=== PATIENT | female | born 1950 | race Caucasian/White ===

== ENCOUNTER 2018-07-18 10:35 | Day surgery (SDC) | payer MEDICARE, OTHER, SELFPAY ==
[2018-07-18 11:35] VITALS: BP 212/108; PULSE 98; RESP 24; TEMP 36.6; O2SAT 98; BMI 33.0
[2018-07-18 11:45] VITALS: BP 212/108; PULSE 98; RESP 24; TEMP 36.6; O2SAT 98
[2018-07-18] MEDS: PROPARACAINE 0.5% OPHTH SOL 2 DROPS EYE-OP (11:45)
[2018-07-18] MEDS: CATARACT EYE COMPOUND (10 DROPS/SYRINGE) 3 DROPS EYE-OP (11:50)
--- NOTE | 2018-07-18 12:03 | PM.PREOP ---
Pre-operative Note Interval Note History & Physical reviewed/Exam performed by Physician: Yes Changes to H&P: No
[2018-07-18] MEDS: MIDAZOLAM 2 MG/2 ML VIAL IV (12:04)
[2018-07-18] MEDS: PHENYLEPHRINE/LIDOCAINE VIAL (OR) 0.2 ML EYE-OP (12:43)
[2018-07-18] MEDS: MOXIFLOXACIN OPHTH DROPS 3 ML BOTTLE 2 DROPS INJ (12:43)
[2018-07-18] MEDS: CHONDROIDTIN/SOD HYALURONATE 1.05 ML SYRINGE INTRAOCULA (12:44)
[2018-07-18] MEDS: TETRACAINE 0.5% OPHTH DROPS 4 ML 2 DROPS EYE-RIGHT (12:45)
[2018-07-18] MEDS: BALANCED SALT IRRIG SOLN NO.2 500 ML, EPINEPHrine 1 MG IRR (12:45)
[2018-07-18] MEDS: TRIAMCINOLONE (PF) 40 MG/ML VIAL IM (13:06)
[2018-07-18] MEDS: ERYTHROMYCIN OPHTH 1 GM OINT 1 APPLIC EYE-RIGHT (13:23)
--- NOTE | 2018-07-18 13:24 | PM.OP.1 ---
Procedure & Clinicians Procedure: Cataract extraction with introcular lens implant right Same procedure as scheduled: Yes Indications: nuclear sclerosis, right Surgeon: George Garrido Click Yes if Unassisted: Yes Anesthesia Type: MAC +/- Operative Notes Procedure in detail: The patient was brought to the operating suite. The correct patient, surgical site and lens were confirmed. 0.5 % tetracaine drops were placed in the right eye. The cornea was marked with a reference marker. The patient was prepped and draped in the typical sterile manner. A lid speculum was placed in the eye. 2% lidocaine was placed on the eye. A paracentesis port was created with a 1.0mm side-port blade. 0.1 mL of 1% preservative free lidocaine with phenylephrine was injected into the anterior chamber. Viscoelastic was injected into the anterior chamber. A 2.6mm keratome was used to create a clear corneal temporal incision. Cystotome and Utrata forceps were used to create a continuous curvilinear capsulorrhexis. Balanced salt solution was used to hydrodissect the nucleus. The lens was fractured into four quadrants using a divide and conquer technique with a Darren nucleus chopper. Phacoemulsification was used to remove the quadrants. While removing the last nuclear quadrant the posterior bag moved anterior and touched the phacoemulsification tip. A posterior tear was appreciated. Provisc was inserted into the anterior chamber and the vitreous pushed posterior. Utrada forceps were used to create a continuous posterior capsulorrhexis. Provisc was used to refill the anterior chamber. An attempt to remove the residual cortex with I/A was made. At this point vitreous was appreciated in the anterior chamber. The anterior chamber was re-inflated with Provisc. Triesence was injected into the anterior chamber and anterior vitreous was removed with an anterior vitrector. At this point the decision was made to abort the surgery. The wound was sutured with 10-0 nylon and the knot buried. The wound and sideport incision were found to be water tight. No vitreous was appreciated at the incisions. 0.1mL Vigamox was injected into the anterior chamber. The wounds were checked again and found to be sealed and the eye was found to be at normal physiologic pressure. The wounds were again checked for vitreous and no vitreous was appreciated. Erythromycin ointment was applied to the eye and a pressure patch was placed. Will plan for retina referral. Complications: other Condition: stable Disposition: same day surgery
[2018-07-18 13:35] VITALS: BP 189/99; PULSE 79; RESP 16; TEMP 36.1; O2SAT 97
--- NOTE | 2018-07-18 15:51 | SUR.PHASEII ---
in to talk with patient [phone], 1400 pt dressed , steady on feet, ready to go home
== END 2018-07-18 14:00 ==
LOC: OR 10:36
PROVIDERS: PCP Student in an Organized Health Care Education/Training Program; Visit Provider Ophthalmology
DX: H25.11 Age-related nuclear cataract, right eye (principal)
CPT/HCPCS: J0171; J2250; J3010; J3300

== ENCOUNTER 2018-08-01 07:42 | Day surgery (SDC) | payer MEDICARE, OTHER, SELFPAY ==
[2018-08-01] MEDS: PROPARACAINE 0.5% OPHTH SOL 2 DROPS EYE-OP (08:05)
[2018-08-01 08:06] VITALS: BP 190/94; PULSE 61; RESP 15; TEMP 36.4; O2SAT 100; BMI 34.1
[2018-08-01] MEDS: CATARACT EYE COMPOUND (10 DROPS/SYRINGE) 3 DROPS EYE-OP (08:07)
--- NOTE | 2018-08-01 09:58 | PM.PREOP ---
Pre-operative Note Interval Note History & Physical reviewed/Exam performed by Physician: Yes Changes to H&P: No
--- NOTE | 2018-08-01 10:21 | SUR.OPER ---
Supine on eye stretcher, head on extension cradle secured with tape. Arms tucked at sides with blanket. Pillow under knees.
[2018-08-01] MEDS: PHENYLEPHRINE/LIDOCAINE VIAL (OR) 0.2 ML EYE-OP (10:23)
[2018-08-01] MEDS: MOXIFLOXACIN OPHTH DROPS 3 ML BOTTLE 2 DROPS INJ (10:24)
[2018-08-01] MEDS: CHONDROIDTIN/SOD HYALURONATE 1.05 ML SYRINGE INTRAOCULA (10:24)
[2018-08-01] MEDS: LIDOCAINE 2% INJ SDV 5 ML INJ (10:25)
[2018-08-01] MEDS: BALANCED SALT IRRIG SOLN NO.2 500 ML, EPINEPHrine 1 MG IRR (10:25)
[2018-08-01] MEDS: BALANCED SALT IRRIG SOLN NO.2 15 ML IRR (10:26)
--- NOTE | 2018-08-01 10:47 | PM.OP.1 ---
Procedure & Clinicians Procedure: Cataract extraction , intraocular lens implant, left Same procedure as scheduled: Yes Indications: visually significant nuclear cataract, left Click Yes if Unassisted: Yes Anesthesia Type: MAC +/- Operative Notes Procedure in detail: The patient was brought to the operating suite. The correct patient, surgical site and lens were confirmed. 0.5 % tetracaine drops were placed in the left eye. The cornea was marked with a corneal reference marker. The patient was prepped and draped in the typical sterile manner. A lid speculum was placed in the eye. 2% lidocaine was placed on the eye. A paracentesis port was created with a side-port blade. 0.1 mL of 1% preservative free lidocaine with phenylephrine was injected into the anterior chamber. Viscoelastic was injected into the anterior chamber. A 2.6mm keratome was used to create a clear corneal temporal incision. Cystotome and Utrata forceps were used to create a continuous curvilinear capsulorrhexis. Balanced salt solution was used to hydrodissect the nucleus. Phacoemulsification was used to remove the lens. The capsular bag was inflated with viscoelastic. A Baker [id number] +15.5D lens was inserted into the capsule and aligned to 108 degrees. Viscoelastic was removed and the wound hydrated. The wound was found to be leak free and the eye was assessed to be at normal physiologic pressure. 0.1mL Vigamox was injected into the anterior chamber. The lens was found to be in good location and well aligned. The lid speculum was removed and the patient left the operating room in excellent condition. Complications: none Condition: stable Disposition: same day surgery
--- NOTE | 2018-08-01 10:50 | P.OP_ITS ---
Procedure & Clinicians Procedure: Cataract extraction , intraocular lens implant, left Same procedure as scheduled: Yes Indications: visually significant nuclear cataract, left Click Yes if Unassisted: Yes Anesthesia Type: MAC +/- Operative Notes Procedure in detail: The patient was brought to the operating suite. The correct patient, surgical site and lens were confirmed. 0.5 % tetracaine drops were placed in the left eye. The cornea was marked with a corneal reference marker. The patient was prepped and draped in the typical sterile manner. A lid speculum was placed in the eye. 2% lidocaine was placed on the eye. A paracentesis port was created with a side-port blade. 0.1 mL of 1% preservative free lidocaine with phenylephrine was injected into the anterior chamber. Viscoelastic was injected into the anterior chamber. A 2.6mm keratome was used to create a clear corneal temporal incision. Cystotome and Utrata forceps were used to create a continuous curvilinear capsulorrhexis. Balanced salt solution was used to hydrodissect the nucleus. Phacoemulsification was used to remove the lens. The capsular bag was inflated with viscoelastic. A Baker [id number] +15.5D lens was inserted into the capsule and aligned to 108 degrees. Viscoelastic was removed and the wound hydrated. The wound was found to be leak free and the eye was asse ssed to be at normal physiologic pressure. 0.1mL Vigamox was injected into the anterior chamber. The lens was found to be in good location and well aligned. The lid speculum was removed and the patient left the operating room in excellent condition. Complications: none Condition: stable Disposition: same day surgery
[2018-08-01 11:04] VITALS: BP 154/85; PULSE 51; RESP 15; TEMP 36.1; O2SAT 98
== END 2018-08-01 11:07 ==
LOC: OR 07:43
PROVIDERS: PCP Student in an Organized Health Care Education/Training Program; Visit Provider Ophthalmology
DX: H25.12 Age-related nuclear cataract, left eye (principal); I10 Essential (primary) hypertension
CPT/HCPCS: J0171; J2250; J2704; J3010; V2787

== ENCOUNTER → 2018-11-26 13:26 | Outpatient (CLI) | payer MEDICARE, OTHER, SELFPAY ==
[2018-11-26 14:02] LABS: Appearance Urine UA CLEAR; Bilirubin Urine UA NEGATIVE (NEGATIVE); Color Urine UA YELLOW; Glucose Urine UA NEGATIVE (Negative); Ketones Urine UA NEGATIVE (NEGATIVE); Leukocyte Esterase Urine UA 2+ (NEGATIVE); Nitrite Urine UA NEGATIVE (Negative); Occult Blood Urine UA NEGATIVE (Negative); Protein Urine UA NEGATIVE (Negative); Urobilinogen Urine UA 0.2 E.U./dL (0.2)
[2018-11-26 14:14] LABS: BUN Creatinine Ratio 16.7 (6-22); Blood Urea Nitrogen 15 mg/dL (7-17); Calcium 9.4 mg/dL (8.4-10.2); Carbon Dioxide 27 mmol/L (22-32); Chloride 99 mmol/L (98-107); Cholesterol 213 mg/dL (140-199); Estimated Glomerular Filt Rate > 60.0 mL/min (>60); Glucose 102 mg/dL (80-110); HDL Cholesterol 42 mg/dL (40-60); HEMOLYSIS < 15 (0-50); LDL Cholesterol Calculated 140 mg/dL (<100); Potassium 4.3 mmol/L (3.4-5.1); Sodium 137 mmol/L (137-145); Triglycerides 154 mg/dL (35-150)
[2018-11-26 14:20] LABS: RBC Urine 0-1/HPF (0-5/HPF)
[2018-11-26 14:21] LABS: Bacteria Urine Few (2-10); Culture Indicated Urine Specimen Cultured; Squamous Epithelial Cell Urine 0-1 /HPF (0-5/HPF); WBC Urine 10-30/HPF (0-5/HPF)
[2018-11-26 16:15] LABS: Vitamin D 25 Hydroxy (D3) 23.4 ng/mL (30.0-100.0)
== END ==
PROVIDERS: PCP Student in an Organized Health Care Education/Training Program; Visit Provider Student in an Organized Health Care Education/Training Program
DX: E55.9 Vitamin D deficiency, unspecified (principal); E66.01 Morbid (severe) obesity due to excess calories; R30.0 Dysuria; E66.9 Obesity, unspecified; I10 Essential (primary) hypertension; Z78.0 Asymptomatic menopausal state; Z13.220 Encounter for screening for lipoid disorders
CPT/HCPCS: 36415; 80048; 80061; 81001; 82306; 87077; 87086; 87186

== ENCOUNTER → 2018-11-27 10:13 | Outpatient (CLI) | payer MEDICARE, OTHER, SELFPAY ==
--- NOTE | 2018-11-27 10:15 | DI.MG.S_ITS ---
BILATERAL DIGITAL SCREENING MAMMOGRAM 3D/2D WITH CAD: 11/27/2018 CLINICAL: Routine screening. Comparison is made to exams dated: 07/08/2013 mammogram and 10/14/2008 mammogram - [facility], [place], [facility]. There are scattered fibroglandular elements in both breasts. Current study was also evaluated with a Computer Aided Detection (CAD) system. No significant masses, calcifications, or other findings are seen in either breast. There has been no significant interval change. IMPRESSION: NEGATIVE There is no mammographic evidence of malignancy. A 1 year screening mammogram is recommended. This exam was interpreted at Station ID: [id number]. NOTE: For mammograms, a report in lay terms will be sent to the patient. Approximately 15% of breast malignancies will not be visualized mammographically. In the management of a palpable breast mass, a negative mammogram must not discourage biopsy of a clinically suspicious lesion. Electronically Signed By: Rupa erickson/yun:11/27/2018 12:19:30 letter sent: Normal Exam ACR BI-RADS Category 1: Negative 3341F
== END ==
PROVIDERS: PCP Student in an Organized Health Care Education/Training Program; Visit Provider Student in an Organized Health Care Education/Training Program
DX: Z12.31 Encounter for screening mammogram for malignant neoplasm of breast (principal)
CPT/HCPCS: 77063; 77067

== ENCOUNTER → 2019-12-26 09:41 | Outpatient (CLI) | payer MEDICARE, OTHER, SELFPAY | PROVIDERS: PCP Student in an Organized Health Care Education/Training Program; Referring Provider Student in an Organized Health Care Education/Training Program; Visit Provider Student in an Organized Health Care Education/Training Program | DX: Z13.820 Encounter for screening for osteoporosis (principal); Z78.0 Asymptomatic menopausal state; Z91.89 Other specified personal risk factors, not elsewhere classified | CPT/HCPCS: 77080 ==

== ENCOUNTER → 2020-12-14 14:08 | Outpatient (CLI) | payer MEDICARE, OTHER, SELFPAY ==
--- NOTE | 2020-12-14 | DI.MG.S_ITS ---
BILATERAL DIGITAL SCREENING MAMMOGRAM 3D/2D WITH CAD: 12/14/2020 CLINICAL: Routine screening. Comparison is made to exams dated: 11/27/2018 mammogram - [facility], 07/08/2013 mammogram, and 10/14/2008 mammogram - [facility]. There are scattered fibroglandular elements in both breasts. Current study was also evaluated with a Computer Aided Detection (CAD) system. There are benign calcifications in the right breast. There also is a biopsy clip in the right breast. No significant masses, calcifications, or other findings are seen in either breast. There has been no significant interval change. IMPRESSION: BENIGN There is no mammographic evidence of malignancy. A 1 year screening mammogram is recommended. This exam was interpreted at Station ID: [id number]. NOTE: For mammograms, a report in lay terms will be sent to the patient. Approximately 15% of breast malignancies will not be visualized mammographically. In the management of a palpable breast mass, a negative mammogram must not discourage biopsy of a clinically suspicious lesion. Electronically Signed By: Jones melchor/yun:12/14/2020 15:30:53 letter sent: Normal Exam ACR BI-RADS Category 2: Benign Finding(s) 3342F
== END ==
PROVIDERS: PCP Student in an Organized Health Care Education/Training Program; Referring Provider Student in an Organized Health Care Education/Training Program; Visit Provider Student in an Organized Health Care Education/Training Program
DX: Z12.31 Encounter for screening mammogram for malignant neoplasm of breast (principal)
CPT/HCPCS: 77063; 77067

== ENCOUNTER → 2021-12-16 11:21 | Outpatient (CLI) | payer MEDICARE, OTHER, SELFPAY ==
--- NOTE | 2021-12-16 | DI.MG.S_ITS ---
BILATERAL DIGITAL SCREENING MAMMOGRAM 3D/2D WITH CAD: 12/16/2021 CLINICAL: Routine screening. Comparison is made to exams dated: 12/14/2020 mammogram, 11/27/2018 mammogram - [facility], and 07/08/2013 mammogram - [facility]. There are scattered fibroglandular elements in both breasts. Current study was also evaluated with a Computer Aided Detection (CAD) system. There are benign calcifications in the right breast. There also is a biopsy clip in the right breast. No significant masses, calcifications, or other findings are seen in either breast. There has been no significant interval change. IMPRESSION: BENIGN There is no mammographic evidence of malignancy. A 1 year screening mammogram is recommended. Based on the Tyrer Cuzick model (a risk assessment model) the patient's lifetime risk is 2.8% and her 10 year risk is 2.1%. According to the ACR, ACS, and NCCN guidelines, an annual breast MRI exam along with mammogram is recommended if the patient's lifetime risk is 20% or greater. This exam was interpreted at Station ID: [id number]. NOTE: For mammograms, a report in lay terms will be sent to the patient. Approximately 15% of breast malignancies will not be visualized mammographically. In the management of a palpable breast mass, a negative mammogram must not discourage biopsy of a clinically suspicious lesion. Electronically Signed By: Rosa may/yun:12/16/2021 15:48:59 letter sent: Normal Exam ACR BI-RADS Category 2: Benign Finding(s) 3342F
== END ==
PROVIDERS: PCP Student in an Organized Health Care Education/Training Program; Referring Provider Student in an Organized Health Care Education/Training Program; Visit Provider Student in an Organized Health Care Education/Training Program
DX: Z12.31 Encounter for screening mammogram for malignant neoplasm of breast (principal); Z78.0 Asymptomatic menopausal state; Z13.820 Encounter for screening for osteoporosis
CPT/HCPCS: 77063; 77067; 77080

== ENCOUNTER → 2021-12-20 14:08 | Outpatient (CLI) | payer MEDICARE, OTHER, SELFPAY ==
[2021-12-20 15:40] LABS: BUN Creatinine Ratio 17.9 (6-22); Blood Urea Nitrogen 14 mg/dL (7-17); Calcium 9.2 mg/dL (8.4-10.2); Carbon Dioxide 26 mmol/L (22-32); Chloride 101 mmol/L (98-107); Estimated Glomerular Filt Rate > 60 mL/min (>60); Glucose 92 mg/dL (80-110); HEMOLYSIS < 15 (0-50); Potassium 4.3 mmol/L (3.4-5.1); Sodium 136 mmol/L (137-145)
== END ==
PROVIDERS: PCP Student in an Organized Health Care Education/Training Program; Referring Provider Student in an Organized Health Care Education/Training Program; Visit Provider Student in an Organized Health Care Education/Training Program
DX: I10 Essential (primary) hypertension (principal)
CPT/HCPCS: 36415; 80048

== ENCOUNTER → 2023-08-10 16:12 | Outpatient (CLI) | payer MEDICARE, OTHER, SELFPAY ==
[2023-08-10 17:10] LABS: Add Manual Diff / Slide Review NO; Basophils Absolute Auto 100 /uL (0-100); Basophils Percent Auto 0.8 % (0-2); Eosinophils Absolute Auto 100 /uL (0-450); Hematocrit 40.4 % (36-46); Hemoglobin 13.6 g/dL (12.0-16.0); Lymphocytes Absolute Auto 3600 /uL (1100-4500); Lymphocytes Percent Auto 44.2 % (25-40); Mean Corpuscular HGB Conc 33.7 % (30-36); Mean Corpuscular Hemoglobin 30.7 PG (26-34); Mean Corpuscular Volume 91.3 fL (80-100); Monocytes Absolute Auto 800 /uL (0-900); Monocytes Percent Auto 9.9 % (3-14); Neutrophils Absolute Auto 3600 /uL (1500-7000); Neutrophils Percent Auto 44.1 % (50-75); Platelet Count 288 X10^3/uL (150-400); Red Blood Cell Count 4.43 X10^6/uL (4.0-5.2); Red Cell Distribution Width 13.9 % (11.6-14.8); White Blood Cell Count 8.1 X10^3/uL (4.5-11.0)
[2023-08-10 17:49] LABS: Alanine Aminotransferase 17 IU/L (<35); Albumin 4.4 g/dL (3.5-5.0); Albumin Globulin Ratio 1.3 (1.0-2.8); Alkaline Phosphatase 92 U/L (38-126); Aspartate Aminotransferase 22 IU/L (14-36); BUN Creatinine Ratio 15.5 (6-22); Bilirubin Total 0.7 mg/dL (0.2-1.3); Blood Urea Nitrogen 20 mg/dL (7-17); Calcium 9.8 mg/dL (8.4-10.2); Carbon Dioxide 29 mmol/L (22-32); Chloride 101 mmol/L (98-107); Cholesterol 261 mg/dL (140-199); Estimated Glomerular Filt Rate 44 mL/min (>60); Globulin 3.3 g/dL (1.7-4.1); Glucose 85 mg/dL (80-110); HDL Cholesterol 45 mg/dL (40-60); HEMOLYSIS < 15 (0-50); LDL Cholesterol Calculated 170 mg/dL (<100); Potassium 5.1 mmol/L (3.4-5.1); Sodium 136 mmol/L (137-145); Total Protein 7.7 g/dL (6.3-8.2); Triglycerides 229 mg/dL (35-150)
== END ==
PROVIDERS: PCP Nurse Practitioner Family; Referring Provider Nurse Practitioner Family; Visit Provider Nurse Practitioner Family
DX: I10 Essential (primary) hypertension (principal)
CPT/HCPCS: 36415; 80053; 80061; 85025

== ENCOUNTER → 2023-09-17 09:17 | Outpatient (CLI) | payer MEDICARE, OTHER, SELFPAY ==
[2023-09-17 10:25] LABS: Hemoglobin A1C% w Est Avg Glu 5.3 % (4.0-6.0)
[2023-09-17 10:59] LABS: Alanine Aminotransferase 17 IU/L (<35); Albumin 4.4 g/dL (3.5-5.0); Albumin Globulin Ratio 1.6 (1.0-2.8); Alkaline Phosphatase 104 U/L (38-126); Aspartate Aminotransferase 24 IU/L (14-36); BUN Creatinine Ratio 17.8 (6-22); Bilirubin Total 0.7 mg/dL (0.2-1.3); Blood Urea Nitrogen 13 mg/dL (7-17); Calcium 9.1 mg/dL (8.4-10.2); Carbon Dioxide 27 mmol/L (22-32); Chloride 104 mmol/L (98-107); Estimated Glomerular Filt Rate > 60 mL/min (>60); Globulin 2.8 g/dL (1.7-4.1); Glucose 102 mg/dL (80-110); HEMOLYSIS < 15 (0-50); Potassium 4.8 mmol/L (3.4-5.1); Sodium 138 mmol/L (137-145); Total Protein 7.2 g/dL (6.3-8.2)
== END ==
LOC: LAB 09:18
PROVIDERS: PCP Nurse Practitioner Family; Referring Provider Nurse Practitioner Family; Visit Provider Nurse Practitioner Family
DX: I10 Essential (primary) hypertension (principal); N28.9 Disorder of kidney and ureter, unspecified; E78.2 Mixed hyperlipidemia
CPT/HCPCS: 36415; 80053; 83036; 84443

== ENCOUNTER → 2024-02-20 10:44 | Outpatient (CLI) | payer MEDICARE, OTHER, SELFPAY ==
[2024-02-20 13:12] LABS: Cholesterol 180 mg/dL (140-199); HDL Cholesterol 46 mg/dL (40-60); LDL Cholesterol Calculated 88 mg/dL (<100); Triglycerides 231 mg/dL (35-150)
== END ==
PROVIDERS: PCP Nurse Practitioner Family; Referring Provider Nurse Practitioner Family; Visit Provider Nurse Practitioner Family
DX: E78.00 Pure hypercholesterolemia, unspecified (principal); E78.2 Mixed hyperlipidemia
CPT/HCPCS: 36415; 80061

== ENCOUNTER → 2024-10-23 09:24 | Outpatient (CLI) | payer MEDICARE, OTHER, SELFPAY ==
--- NOTE | 2024-10-23 09:25 | DI.RAD.S_ITS ---
PROCEDURE: XR KNEE RT 3V INDICATIONS: Right medial knee pain TECHNIQUE: 3 views of the knee were acquired. COMPARISON: None. FINDINGS: Bones: There are no osseous abnormalities. Joints: Severe patellofemoral medial tibial femoral degeneration. Small effusion Soft tissues: Normal IMPRESSION: Severe degeneration Dictated by: Ritchie Mcallister M.D. on 10/24/2024 at 13:06 Approved by: Ritchie Mcallister M.D. on 10/24/2024 at 13:06
== END ==
PROVIDERS: PCP Nurse Practitioner Family; Referring Provider Nurse Practitioner Family; Visit Provider Nurse Practitioner Family
DX: M17.11 Unilateral primary osteoarthritis, right knee (principal); M25.461 Effusion, right knee; M25.561 Pain in right knee
CPT/HCPCS: 73562

== ENCOUNTER → 2024-10-23 13:32 | Outpatient (CLI) | payer MEDICARE, OTHER, SELFPAY ==
--- NOTE | 2024-10-23 13:33 | DI.US.S_ITS ---
PROCEDURE: US PERIPH VENOUS LOW EXTREM RT INDICATIONS: EDEMA TECHNIQUE: Real-time imaging, as well as color and pulse Doppler interrogation, were performed of the lower extremity deep veins from the inguinal ligament to the popliteal fossa, with documentation of the visualized calf veins. COMPARISON: [facility], CR, XR KNEE RT 3V, 10/23/2024, 9:20. FINDINGS: The common femoral, femoral, popliteal, and the visualized calf veins are normally compressible, and free of intraluminal thrombus. Color and pulse Doppler demonstrate normal phasic intraluminal flow. There is normal augmentation response to distal compression maneuver. IMPRESSION: No findings of lower extremity deep venous thrombosis. Dictated by: Efrain Robles M.D. on 10/23/2024 at 13:21 Approved by: Efrain Robles M.D. on 10/23/2024 at 13:21
== END ==
LOC: US 13:33
PROVIDERS: PCP Nurse Practitioner Family; Referring Provider Nurse Practitioner Family; Visit Provider Nurse Practitioner Family
DX: M17.11 Unilateral primary osteoarthritis, right knee (principal); M25.561 Pain in right knee; M25.461 Effusion, right knee; M25.471 Effusion, right ankle
CPT/HCPCS: 73562; 93971

== ENCOUNTER → 2024-11-21 10:49 | Outpatient (CLI) | payer MEDICARE, OTHER, SELFPAY ==
--- NOTE | 2024-11-21 10:55 | EKG_ITS ---
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
[2024-11-21 11:58] LABS: Add Manual Diff / Slide Review NO; Hematocrit 39.3 % (36-46); Hemoglobin 13.7 g/dL (12.0-16.0); Lymphocytes Absolute Auto 2400 /uL (1100-4500); Mean Corpuscular HGB Conc 34.8 % (30-36); Mean Corpuscular Hemoglobin 31.1 PG (26-34); Mean Corpuscular Volume 89.3 fL (80-100); Platelet Count 273 X10^3/uL (150-400)
[2024-11-21 12:08] LABS: Hemoglobin A1C% w Est Avg Glu 5.7 % (4.0-6.0)
[2024-11-21 12:14] LABS: Albumin 4.7 g/dL (3.5-5.0); Blood Urea Nitrogen 12 mg/dL (7-17); Calcium 9.3 mg/dL (8.4-10.2); Carbon Dioxide 23 mmol/L (22-32); Chloride 104 mmol/L (98-107); Estimated Glomerular Filt Rate > 60 mL/min (>60); Glucose 97 mg/dL (70-99); HEMOLYSIS 19 (0-50); Potassium 4.2 mmol/L (3.4-5.1); Sodium 137 mmol/L (137-145)
[2024-11-21 12:22] LABS: Prealbumin 33.8 mg/dL (17.6-36.0)
[2024-11-21 12:33] LABS: Vitamin D 25 Hydroxy (D3) 23.5 ng/mL (30.0-100.0)
== END ==
LOC: LAB 10:51
PROVIDERS: Family Provider Nurse Practitioner Family; PCP Nurse Practitioner Family; Referring Provider Orthopaedic Surgery Adult Reconstructive Orthopaedic Surgery; Visit Provider Orthopaedic Surgery Adult Reconstructive Orthopaedic Surgery
DX: Z01.818 Encounter for other preprocedural examination (principal); E11.9 Type 2 diabetes mellitus without complications; E55.9 Vitamin D deficiency, unspecified; Z01.812 Encounter for preprocedural laboratory examination
CPT/HCPCS: 36415; 80048; 82040; 82306; 83036; 84134; 85025; 93005

== ENCOUNTER 2024-11-21 12:40 | Outpatient (RCR) | payer MEDICARE, OTHER, SELFPAY ==
--- NOTE | 2024-11-21 16:35 | PT.OIE ---
Current Diagnoses Pain in right knee (11/21/24) Past Medical History (Last Updated 11/14/24 @ 08:17 by Demarco Haider MD) Chicken pox Chronic back pain (~2002) Hypercholesterolemia Hypertension Measles Mumps Primary osteoarthritis of right knee Right knee pain Right leg swelling Scarlet fever Past Surgical History (Last Updated 10/05/18 @ 20:19 by Pilar White) Anesthesia Cataracts, bilateral History of tubal ligation (~1978) Visit Care Team Role Provider Type Demarco Haider MD Other Providers Physician Specialty: Orthopedics Orthopedic Surgery Address: [address] [place] [address], [id number] Fax: Email: [email or web address] Partida Attending Provider Advanced Admissions Director Family Provider Referring Provider Specialty: Family Practice Address: [address] [place] [address], [address] Phone: Fax: Email: [email or web address] Physical Therapy Initial Evaluation PT-OP-A Visit Information Start: 11/21/24 10:13 Freq: Status: Active Protocol: Document 11/21/24 10:14 BL (Rec: 11/21/24 10:30 BL Laptop) Out-Patient Physical Therapy Visit Information Visit Information Visit Type Initial Evaluation Visit Start Time 13:00 Visit Stop Time 13:40 Visit Number (1) 1/10 (PN by 12/22/24) Number of DIRECTOR PERIOPERATIVE Visits 0 PT-OP-C Subjective Start: 11/21/24 10:13 Freq: Status: Active Protocol: Document 11/21/24 10:14 BL (Rec: 11/21/24 10:30 BL Laptop) OP-PT Subjective Patient Comments Patient Comments Pt presents to the clinic this date with concerns for lang standing R knee pain that has progressively worsened over the last few months. Pt reports she plans to have the knee replaced this fall and wants to focus on strengthening to improved post op recovery. Pt reports stiffness in the morning along with locking and clicking and rates her pain as 8/10 at its worst. States extreme difficulty with knee extension. Patient Reported Worse Progress Patient Questionnaires Lower Extremity Functional Scale LEFS Score 13 function PT-OP-D Balance Start: 11/21/24 10:13 Freq: Status: Active Protocol: Document 11/21/24 10:14 BL (Rec: 11/21/24 10:30 BL Laptop) Balance Tests Single Limb Standing Single Limb- Right 2 Single Limb- Left 2 PT-OP-H Neuro Start: 11/21/24 10:13 Freq: Status: Active Protocol: Document 11/21/24 10:14 BL (Rec: 11/21/24 10:30 BL Laptop) Sensation Evaluation Comments Summary Comments pt denies changes in sensation Coordination Evaluation Comments Coordination pt denies changes on coordination Comments PT-OP-J Posture/Palpation/Skin Start: 11/21/24 10:13 Freq: Status: Active Protocol: Document 11/21/24 10:14 BL (Rec: 11/21/24 10:30 BL Laptop) Posture Evaluation Comments Posture Comments pt ambulates with decreased heel strike on R LE and decreased knee extension. Palpation Assessment Location R knee Palpation Details pt point tender with palpation to posterior hamstrings and popliteal fossa. PT-OP-K Range of Motion Start: 11/21/24 10:13 Freq: Status: Active Protocol: Document 11/21/24 10:14 BL (Rec: 11/21/24 10:30 BL Laptop) Hip Goniometric Range of Motion Hip right Hip ROM WFL Yes left Hip ROM WFL Yes Knee Goniometric Range of Motion Knee Right Flexion Active ( 110 degrees) Extension Active ( 10 degrees) Comments Girth measurements: 10 cm above 56cm , mid patella 53cm , 10 cm below 47cm Left Knee ROM WFL Yes Flexion Active ( 115 degrees) Extension Active ( 0 degrees) PT-OP-M Strength Start: 11/21/24 10:13 Freq: Status: Active Protocol: Document 11/21/24 10:14 BL (Rec: 11/21/24 10:30 BL Laptop) Hip Strength Hip Manual Muscle Testing Right Flexion (L2) 4+ Good+ Extension (S1) 4+ Good+ Abduction 4+ Good+ Adduction 4+ Good+ External Rotation 4+ Good+ Internal Rotation 4+ Good+ Left Flexion (L2) 4+ Good+ Extension (S1) 4+ Good+ Abduction 4+ Good+ Adduction 4+ Good+ External Rotation 4+ Good+ Internal Rotation 4+ Good+ Knee Strength Knee Manual Muscle Testing Right Flexion (S2) 4 Good Extension (L3) 4+ Good+ Comments limited due to pain Left Flexion (S2) 4+ Good+ Extension (L3) 5 Normal PT-OP-Q Treatments Start: 11/21/24 10:13 Freq: Status: Active Protocol: Document 11/21/24 10:14 BL (Rec: 11/21/24 10:30 BL Laptop) Therapeutic Exercises Supine Exercises strength Supine Exercise Name SLR with ER, Quad Set, ankle pumps, SAQ, PT-OP-T Assessment and Plan Start: 11/21/24 10:13 Freq: Status: Active Protocol: Document 11/21/24 10:14 BL (Rec: 11/21/24 10:30 BL Laptop) Physical Therapy Assessment Rehab Potential Rehabilitation Good Potential Evaluation Complexity Number of Personal 1-2 Factors/ Comorbidities Number of Body 3 Systems Impaired Clinical Evolving Presentation at Evaluation Impairments Impairments Activity Tolerance,Balance,Coordination,Functional Activities,Functional Mobility,Gait,Pain,Posture,ROM, Soft Tissue Mobility,Strength,Transfers Goals Two Impairment . One Impairment . Assessment Summary Assessment Pt presents with deficits in A/PROM to R knee along with decreased strength, which are affecting pt balance and pain control with ADLs. Pt is planning to have a knee replacement this fall and will benefit from skilled Physical Therapy intervention following surgical intervention initially to improve ROM and then to focus on strength and functional mobility. Pt provided extensive education this date on pre hab nutrition, hydration and mobility. Pt provided hand out of HEP to focus on knee and hip strengthening. Pt educated on post surgical dressing, signs of infection, limiting activity and healing process. Plan to follow up with pt post surgical intervention. Physical Therapy Plan Frequency and Duration Frequency of Eval Only Treatment
== END 2024-11-24 14:52 | disposition home or self-care (01) ==
LOC: PHYS 12:40
PROVIDERS: Family Provider Nurse Practitioner Family; Referring Provider Nurse Practitioner Family; Visit Provider Nurse Practitioner Family
DX: M25.561 Pain in right knee (principal)
CPT/HCPCS: 97110; 97162

== ENCOUNTER → 2025-01-14 09:27 | Outpatient (CLI) | payer MEDICARE, OTHER, SELFPAY ==
[2025-01-14 11:13] LABS: Cholesterol 158 mg/dL (140-199); HDL Cholesterol 44 mg/dL (40-60); Triglycerides 164 mg/dL (35-150)
[2025-01-14 11:31] LABS: Vitamin D 25 Hydroxy (D3) 40.6 ng/mL (30.0-100.0)
== END ==
PROVIDERS: PCP Nurse Practitioner Family; Referring Provider Nurse Practitioner Family; Visit Provider Nurse Practitioner Family
DX: E78.2 Mixed hyperlipidemia (principal); E55.9 Vitamin D deficiency, unspecified
CPT/HCPCS: 36415; 80061; 82306

== ENCOUNTER 2025-01-26 05:51 | Day surgery (SDC) | payer MEDICARE, OTHER, SELFPAY ==
[2025-01-22 08:19] VITALS: BMI 37.0
[2025-01-26] VITALS (7 sets, daily range): BP systolic 121–177; BP diastolic 58–85; PULSE 84–98; RESP 13–25; TEMP 36.2–36.6; O2SAT 94–99; BMI 37.0
[2025-01-26] MEDS: ACETAMINOPHEN 325 MG TABLET 975 MG PO (07:00)
[2025-01-26] MEDS: LACTATED RINGERS 1,000 ML 42 ML IV ×2 (07:01→09:33)
--- NOTE | 2025-01-26 07:33 | SUR.PREOP ---
fsg deferred - pt is not diabetic
--- NOTE | 2025-01-26 07:43 | PM.PREOP ---
Pre-operative Note Interval Note History & Physical reviewed/Exam performed by Physician: Yes Changes to H&P: No
--- NOTE | 2025-01-26 07:48 | DI.RAD.S_ITS ---
PROCEDURE: XR KNEE RT 2V INDICATIONS: TKA TECHNIQUE: 2 views of the right knee acquired. COMPARISON: [facility], CR, XR KNEE RT 3V, 10/23/2024, 9:20. FINDINGS: Since the prior exam there has been right total knee arthroplasty with expected postoperative changes, soft tissue swelling and soft tissue gas. No radiographic evidence of periprosthetic fracture or high attenuation surgical instrument or foreign body. IMPRESSION: Expected post-operative appearance of a knee arthroplasty. Dictated by: Mak Srivastava M.D. on 01/26/2025 at 10:37 Approved by: Mak Srivastava M.D. on 01/26/2025 at 10:38
[2025-01-26] MEDS: TRANEXAMIC ACID 1,000 MG VIAL 1000 MG INJ ×2 (08:16→09:22)
--- NOTE | 2025-01-26 08:35 | SUR.OPER ---
Supine on padded OR bed. Pillow under head, arms secured on padded armboards <90 degree abduction. Safety belt across torso. Non-operative leg secured with tape over blanket over lower leg. Operative leg secured in DeMayo/Doug/Nathe positioner. Foam padded brace at thigh of operative leg.
[2025-01-26] MEDS: KETOROLAC 30 MG/ML VIAL IM (08:44)
--- NOTE | 2025-01-26 09:25 | SUR.OPER ---
LAVAGE: 4 FL. OZ 3% HYDROGEN PEROXIDE, POVIDONE IODINE 44ML, NORMAL SALINE
--- NOTE | 2025-01-26 09:59 | P.OP_ITS ---
Operative Date/Time/Diagnoses Date of procedure: 01/26/25 Time of procedure: 07:45 Pre-op diagnosis: Right knee osteoarthritis Post-op diagnosis: same Procedure & Clinicians Procedure: Right total knee arthroplasty Same procedure(s) as scheduled: Yes Surgeon: Demarco Haider Assisted?: Yes Floor Layer Helper: Chantal Brady Anesthesia Type: Spinal, Sedation and Local Operative Notes Findings: Severe knee arthritis Closure Type: primary Applied: implant(s) Estimated Blood Loss (mL): 100 Procedure in detail: Right Gap-Balanced Jonel Persona Medial-Congruent Primary Total Knee Arthroplasty Implants: * Size 9 narrow Cruciate Retaining Femoral Component * Size F OsseoTi Tibial Component * Size 11 Medial Congruent Polyethylene Insert * Unresurfaced Patella Procedure Summary: This 74-year-old female patient had varus knee arthritis so I made cuts in slight varus to attempt to minimize the need for soft tissue releases. This balanced in extension without the need for a posterior medial release. Femoral rotation balanced at 8?. I had initially planned to use cemented fixation given her age and sex however her bone quality was quite robust intraoperatively and I therefore felt it was reliable to proceed with uncemented fixation. Given her high BMI this should provide her with a biologic implant bone interface. At the conclusion of the case she could not quite fully extend with a 12 mm polyethylene insert so I utilized an 11 mm insert. Procedure in Detail: This patient was seen preoperatively and evaluated for knee pain which was refractory to numerous nonoperative treatment modalities. Their pain correlated with radiographic changes demonstrating significant degeneration in the knee joint. The risks and benefits of continued nonoperative management versus operative management were discussed at length and all of the patient?s questions were answered. Additional educational materials providing further details beyond our discussion in clinic were provided via a publicly available patient education video which included the incidence of medical complications associated with total knee arthroplasty, reasons for revision following total knee arthroplasty, and patient satisfaction rates following total knee arthroplasty. With this understanding of the risks inherent to the procedure, the patient elected to move forward with operative management. Following preoperative optimization, the patient was scheduled for surgery. The patient was met in the preoperative holding area the day of the procedure and all questions were answered. The patient?s nares were swabbed in order to decolonize them from MRSA. Informed consent was signed and the right limb was marked with indelible ink.? The patient was brought back to the operating room where anesthesia was induced. The patient was transferred to the operating table and all bony prominences were padded. The operative site was prepped and draped in the usual sterile fashion. A second prep stick was utilized following drape placement. The incision was marked corresponding to the medial aspect of the tibial tubercle and the patella. Ioban was wrapped circumferentially around the knee. Prior to incision, tranexamic acid and cefazolin were administered. Templating images were displayed. A timeout procedure was performed verifying the patient?s identity, medical comorbidities, allergies, relevant medications, anesthesia type and the surgical plan. All present were in agreement. The assistance of a physician chemist assistant was required for positioning, room setup, soft tissue retraction and wound closure. Without this assistance, the procedure would have been significantly more challenging and time consuming.?? The tourniquet was inflated prior to incision. I made an anterior incision over the knee, dissected through the subcutaneous tissues and identified the lateral border of the VMO. Medial and lateral soft tissue flaps were developed. A mid- vastus arthrotomy was performed ensuring that adequate capsular tissue would remain for closure at the conclusion of the procedure. The knee was brought into extension and the medial soft tissues were released off the joint line of the tibia. Tissue overlying the distal anterior femur was released to allow for later assessment for anterior notching but left in place. A portion of the retropatellar fat pad was excised while protecting the patellar tendon. The patella was everted. The patella was not resurfaced. Osteophytes were excised and a lateral facetectomy was performed. The patella was released from its everted position.?? I flexed the knee to 90 degrees and placed retractors to allow access to the notch. An opening reamer was used to gain access to the femoral canal and an intramedullary louise was introduced into the canal. Diaphyseal fit was obtained in order to plan a distal femoral resection at 5 degrees relative to the anatomic axis. A +1 resection was planned and assessed using an patito wing. I then made the cut using a sagittal saw. This provided additional access to the femoral notch. The ACL and PCL were excised. Retractors were placed on the lateral and medial tibia. I hyperflexed the knee while externally rotating it to sublux the tibia anteriorly. I placed a Stacey retractor posteriorly and used this to provide additional anterior subluxation. The remainder of the PCL root was released. An extramedullary guide was positioned for a resection in slight varus. A +2 resection off the medial tibia was planned and the tibial cutting jig was pinned in place. I evaluated the depth, varus-valgus alignment and slope of the planned tibial resection prior to making the cut. I cut the tibia with a sagittal saw while using retractors to protect the MCL, patellar tendon, and posterolateral structures.? The knee was repositioned in extension and the Fuzion soft tissue balancing gauge was introduced. This demonstrated that there was equal tension in the medial and lateral compartments of the knee with the knee in full extension and no additional soft tissue releases were necessary. When 60 pounds of force was applied to the Fuzion device, the extension gap opened to 10 mm. I moved the knee into 90 degrees of flexion, and the Fuzion device was recalibrated by removing a 9 mm yaneli to allow assessment of the flexion gap. The Fuzion block was placed perpendicular to the resected surface of the tibia and the resected surface of the distal femur. Sixty pounds of traction was applied to match the tension of the extension gap. This externally rotated the femur to 8 degrees. Pins were placed in the 10 mm holes. Appropriate sizing was determined and a 4-in-1 block was placed. This was double checked using the Fuzion device to ensure that it would open to an equal distance as the extension gap when the same amount of force was applied. The Fuzion block was also used to assess flexion gap symmetry. An patito wing was used to ensure there would be no anterior notching. Retractors were placed to protect the soft tissues during resection. Captured cuts were performed with a sagittal saw for the anterior and posterior femur as well as the corresponding chamfers.?A laminar cardiopulmonary technologist chief and retractors were used to expose the posterior knee and the menisci and posterior osteophytes were removed. Trial components were placed and the construct was assessed. Range of motion was assessed by ensuring the knee could achieve full extension and assessing maximum passive knee flexion by elevating the femur and allowing the heel to passively fall towards the buttock. Gap symmetry was assessed by stressing the medial and lateral compartments in both extension and flexion. Laxity was assessed in both extension and flexion and the polyethylene trial was adjusted with shims as necessary. Patellar tracking was assessed with knee flexion. Once satisfied with the construct, I moved forward with implant insertion. Lug holes were drilled in the femur and the tibia was prepped ensuring appropriate sizing and rotation relative to the tibial tubercle.?? The bony ends were irrigated. A portion of the anterior chamfer cut was utilized as a to plug the hole from the intramedullary louise in the femur. I impacted the tibial component into place. The tibia was reduced underneath the femur. I placed the femoral component. I brought the knee into extension and manually pressurized the construct by pushing on the heel. The knee was bathed in a dilute mixture of betadine and peroxide. A mixture of Ropivacaine, Epinephrine and Toradol was infiltrated throughout the soft tissues into structures including the VMO, patellar tendon, quadriceps tendon, MCL and femoral periosteum. The knee was copiously irrigated with pulse lavage. The knee was again trialed. Range of motion was assessed by ensuring the knee could achieve full extension and assessing maximum passive knee flexion by elevating the femur and allowing the heel to passively fall towards the buttock. Gap symmetry was assessed by stressing the medial and lateral compartments in both extension and flexion. Laxity was assessed in both extension and flexion and the polyethylene trial was adjusted with shims as necessary. Patellar tracking was assessed with knee flexion. The tourniquet was let down and the polyethylene trial was removed. I inspected the knee inspected for excess cement and any residual bleeding. Once hemostasis was achieved I inserted the final polyethylene and ensured appropriate engagement of the dovetail locking mechanism.?? The arthrotomy was closed with non-absorbable interrupted suture ensuring that this extended to the top of the arthrotomy. This was backed up with running barbed suture throughout the arthrotomy. The skin was closed with 2-0 and 3-0 sutures. Surgical glue was applied and a soft dressing was placed.?The sponge, instrument and needle counts were reported as being correct at the end of the case. The patient was transferred from the operating table back to a stretcher. The patient emerged from anesthesia without difficulty and was taken to the PACU in a stable condition.? Plan for aftercare: * Weightbearing as tolerated * Aspirin 81 twice per day for DVT prophylaxis * Multimodal pain regimen with no IV opioids ordered * Anticipate discharge home later today * Follow up at [facility] in 2 weeks for wound check Complications: none Post-operative Condition: stable Disposition: PACU
--- NOTE | 2025-01-26 12:40 | SUR.PHASEII ---
1220 Pt able to stand with walker with 2 nurse assist. able to bear wt on each leg. Assisted with dressing and placed back in bed. Awaits PT eval. at bedside. Pt in good spirits. Request 2nd oxycodone.
--- NOTE | 2025-01-26 13:09 | SUR.PHASEII ---
PT here to evaluate. Dr Haider visits.
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
== END 2025-01-26 13:30 | disposition home or self-care (01) ==
PROVIDERS: Family Provider Nurse Practitioner Family; PCP Nurse Practitioner Family; Referring Provider Orthopaedic Surgery Adult Reconstructive Orthopaedic Surgery; Visit Provider Orthopaedic Surgery Adult Reconstructive Orthopaedic Surgery
PROC: 0SRC0JZ Replacement of Right Knee Joint with Synthetic Substitute, Open Approach (ICD-10-PCS; CPT 27447; principal; 2025-01-26 07:45)
DX: M17.11 Unilateral primary osteoarthritis, right knee (principal); M25.761 Osteophyte, right knee
CPT/HCPCS: 27447; 73560; 97161; C1776; C1713; J0165; J0689; J1885; J2250; J2704; J3010